=== PATIENT | female | born 1980 | race Asian ===

== ENCOUNTER 2019-09-14 11:39 | Emergency (ER) | payer OTHER ==
[~2019-09-14] VITALS: Ht 157.5 cm; Wt 54.8 kg
[2019-09-14 12:48] LABS: ANION GAP 9 mmol/L (5-15); CALCIUM 8.9 mg/dL (8.5-10.1); CHLORIDE 106 mmol/L (98-107)
[2019-09-14 12:55] LABS: CREATININE 0.98 mg/dL (0.55-1.02)
[2019-09-14 13:15] LABS: MEAN CORPUSCULAR HEMOGLOBIN 30.6 pg (27.0-34.8); MEAN CORPUSCULAR HGB CONC 34.1 g/dL (32.4-35.8); MEAN CORPUSCULAR VOLUME 89.8 fL (80-100); RED BLOOD COUNT 4.83 x10^6/uL (3.82-5.3); RED CELL DISTRIBUTION WIDTH 12.2 % (9.6-15.2)
[2019-09-14 13:16] LABS: MD YES
[2019-09-14 13:18] LABS: EOS#(MANUAL) 0.14 x10^3/uL (0.0-0.4); EOS% (MANUAL) 2 % (1-7); LYMPH#(MANUAL) 0.35 x10^3/uL (1-3.4); LYMPHS% (MANUAL) 5 % (22-44); MONOS#(MANUAL) 0.07 x10^3/uL (0.3-2.7); MONOS% (MANUAL) 1 % (2-9); PLATELET COUNT 87 x10^3/uL (130-400); SEG#(MANUAL) 6.44 x10^3/uL (1.8-6.8); SEGS% (MANUAL) 92 % (42-75)
[2019-09-14 13:19] LABS: <PLATELET ESTIMATE> DECREASED; <PLT MORPHOLOGY> NORMAL PLT MORPH; <RBC MORPHOLOGY> NORMAL
--- NOTE | 2019-09-14 17:40 | NUR ---
PT TO ROOM FROM LOBBY
[2019-09-14 18:18] VITALS: BP 188/110
--- NOTE | 2019-09-14 18:27 | NUR ---
THIS IS A 39 YEAR OLD FEMALE WHO WAS SENT FROM URGENT CARE DUE TO HIGH B/P.
[2019-09-14] MEDS ORDERED: LISINOPRIL 10 MG TABLET ONE (18:50)
[2019-09-14] MEDS ORDERED: LISINOPRIL 10 MG TABLET PO ONE (19:00)
== END 2019-09-14 19:02 | disposition home or self-care (01) ==
LOC: ED 18:30
DX: J06.9 Acute upper respiratory infection, unspecified (principal); I10 Essential (primary) hypertension; M79.10 Myalgia, unspecified site; G43.909 Migraine, unspecified, not intractable, without status migrainosus; R94.31 Abnormal electrocardiogram [ECG] [EKG]; Z87.891 Personal history of nicotine dependence
CPT/HCPCS: 36415; 71046; 80048; 85025; 93005; 99285